=== PATIENT | female | born 1950 | race Caucasian/White ===

== ENCOUNTER 2017-07-16 22:23 | Emergency (ER) | payer MEDICARE ==
[~2017-07-16] VITALS: Ht 154.9 cm; Wt 65.2 kg
[~2017-07-16 22:23] MED LIST: K-TAB20 MEQ PO; PRILOSEC20 MG PO; SIMVASTATIN20 MG PO
[2017-07-16] MEDS ORDERED: SERTRALINE50 MG PO (22:35)
[2017-07-16] MEDS ORDERED: VALIUM5 MG PO (22:35)
[2017-07-16] MEDS ORDERED: SM ALLERGY50 MCG/ACT IN (22:35)
[2017-07-16] MEDS ORDERED: RHEUMATREX2.5 M1 PO (22:36)
[2017-07-16] MEDS ORDERED: TIZANIDINE2 MG PO (22:36)
[2017-07-16] MEDS ORDERED: LANTUS100 UNIT/M SC (22:37)
[2017-07-16] MEDS ORDERED: PERCOCET 5/325M1 TAB PO (23:36)
[2017-07-16] MEDS ORDERED: CIPROFLOXACN500 MG PO (23:36)
[2017-07-16] MEDS ORDERED: BACTRIM DS1 TAB PO (23:36)
[2017-07-17] VITALS: BP 150/71
== END 2017-07-17 | disposition home or self-care (01) ==
LOC: ED 22:23
DX: S80.862A Insect bite (nonvenomous), left lower leg, initial encounter (principal); L08.9 Local infection of the skin and subcutaneous tissue, unspecified; W57.XXXA Bitten or stung by nonvenomous insect and other nonvenomous arthropods, initial encounter

== ENCOUNTER 2017-12-21 10:00 | Day surgery (SDC) | payer MEDICARE ==
[~2017-12-21] VITALS: Ht 149.9 cm; Wt 61.2 kg
[~2017-12-21 10:00] MED LIST changes: +ATORVASTATIN CA40 MG PO; +BACTRIM DS1 TAB PO; +CIPROFLOXACN500 MG PO; +FOLIC ACID1 MG PO; +LANTUS100 UNIT/M SC; +LOSARTAN POT25 MG PO; +PERCOCET 5/325M1 TAB PO; +RHEUMATREX2.5 M1 PO; +SERTRALINE50 MG PO; +SM ALLERGY50 MCG/ACT IN; +TIZANIDINE2 MG PO; +TRADJENTA5 MG PO; +VALIUM5 MG PO
[2017-12-21 13:59] VITALS: BP 125/50
== END 2017-12-21 13:40 | disposition home or self-care (01) ==
LOC: ENDO 10:00 → ORM 16:45 → ENDO 16:45
PROVIDERS: ATTEND Internal Medicine Gastroenterology
PROC: 0DB98ZX Excision of Duodenum, Via Natural or Artificial Opening Endoscopic, Diagnostic (ICD-10-PCS; principal; 2017-12-21)
PROC: 0DB48ZX Excision of Esophagogastric Junction, Via Natural or Artificial Opening Endoscopic, Diagnostic (ICD-10-PCS; 2017-12-21)
PROC: 0D758ZZ Dilation of Esophagus, Via Natural or Artificial Opening Endoscopic (ICD-10-PCS; 2017-12-21)
DX: R11.2 Nausea with vomiting, unspecified (principal); R63.4 Abnormal weight loss; R10.11 Right upper quadrant pain; K22.2 Esophageal obstruction; K44.9 Diaphragmatic hernia without obstruction or gangrene; K29.70 Gastritis, unspecified, without bleeding; K21.9 Gastro-esophageal reflux disease without esophagitis; R63.0 Anorexia; R19.7 Diarrhea, unspecified; K62.5 Hemorrhage of anus and rectum; R14.0 Abdominal distension (gaseous); I10 Essential (primary) hypertension; E11.9 Type 2 diabetes mellitus without complications; J45.909 Unspecified asthma, uncomplicated; Z79.899 Other long term (current) drug therapy

== ENCOUNTER 2018-08-15 08:00 | Outpatient (RCR) | payer MEDICARE | END 2018-08-15 09:00 | disposition home or self-care (01) | LOC: PT 08:00 | PROVIDERS: ATTEND Internal Medicine | DX: M54.32 Sciatica, left side (principal); M06.9 Rheumatoid arthritis, unspecified; R53.1 Weakness ==

== ENCOUNTER 2020-01-01 20:04 | Emergency (ER) | payer MEDICARE ==
[~2020-01-01] VITALS: Ht 149.9 cm; Wt 64.0 kg
[2020-01-01 21:09] LABS: HEMATOCRIT 35.5 % (37.0-47.0); IMMATURE GRANULOCYTES 2.1 % (0.0-5.0); MEAN CELL VOLUME 94.9 fL CALC (80.0-100.0); MEAN CORPUSCULAR HGB 31.6 pG CALC (26.0-32.0); MEAN CORPUSCULAR HGB CONC 33.2 g/dL CAL (32.0-36.0); NEUT# 6.5 thou/uL (2.00-7.15); RED BLOOD COUNT 3.74 mill/uL (4.20-5.60); RED CELL DISTRI WIDTH 16.2 % (11.5-15.5)
[2020-01-01 21:11] LABS: HEMOGLOBIN 11.8 g/dl (12.0-16.0)
[2020-01-01 21:26] LABS: ALBUMIN 3.9 g/dL (3.2-5.0); ALKALINE PHOSPHATASE 78 u/l (38-126); ANION GAP 10 (6-22 (CALC)); BUN 7 mg/dL (8-23); BUN/CREATININE RATIO 13 (12-20 (CALC)); CARBON DIOXIDE 25 mmol/l (22-30); CHLORIDE 106 mmol/l (95-108); CREATININE 0.6 mg/dL (0.5-1.0); ETHYL ALCOHOL 159 mg/dl (0-30); GFR > 60 ML/MIN (>=60 (CALC)); GFR FOR AFR.AMER. > 60 ML/MIN (>=60 (CALC)); INTERNATIONAL NORMALIZED RATIO 0.9 RATIO (0.7-1.3); POTASSIUM 3.5 mmol/l (3.5-5.1); PROTHROMBIN TIME 9.3 SECONDS (9.0-12.5); SGOT/AST 21 u/l (9-36); SODIUM 137 mmol/l (137-146); TOTAL PROTEIN 6.4 g/dL (6.3-8.2)
[2020-01-01 21:29] LABS: BILIRUBIN, TOTAL 0.2 mg/dL (0.0-1.4)
[2020-01-01 22:00] VITALS: BP 122/60
== END 2020-01-01 22:05 | disposition home or self-care (01) ==
LOC: ED 20:04
PROVIDERS: Family Medicine
DX: S00.83XA Contusion of other part of head, initial encounter (principal); F10.129 Alcohol abuse with intoxication, unspecified; E11.9 Type 2 diabetes mellitus without complications; F17.200 Nicotine dependence, unspecified, uncomplicated; W18.30XA Fall on same level, unspecified, initial encounter; Y92.009 Unspecified place in unspecified non-institutional (private) residence as the place of occurrence of the external cause

== ENCOUNTER 2024-06-06 20:52 | Emergency (ER) | payer MEDICARE ==
[2024-06-06] VITALS (7 sets, daily range): BP systolic 97–114; BP diastolic 49–67
[~2024-06-06] VITALS: Ht 149.9 cm; Wt 80.0 kg
[~2024-06-06 20:52] MED LIST changes: +HYDROCO/APAP1 T10 PO
[2024-06-06] MEDS ORDERED: ONDANSETRON 4 MG/TAB ODT SL ONE (21:45)
[2024-06-06] MEDS ORDERED: MORPHINE SULFATE 4 MG/ML VIAL IV ONE (21:45)
[2024-06-06] MEDS ORDERED: DEXAMETHASONE SOD. PHOSPHATE 10 MG/ML VIAL IM ONE (23:55)
[2024-06-06] MEDS ORDERED: MORPHINE SULFATE 4 MG/ML VIAL IM ONE (23:55)
[2024-06-07] MEDS ORDERED: CELEBREX100 M1 PO (00:06)
[2024-06-07 00:23] VITALS: BP 114/61
== END 2024-06-07 00:35 | disposition home or self-care (01) ==
LOC: ED 20:52
DX: S80.12XA Contusion of left lower leg, initial encounter (principal); S80.11XA Contusion of right lower leg, initial encounter; M54.50 Low back pain, unspecified; E11.9 Type 2 diabetes mellitus without complications; F17.200 Nicotine dependence, unspecified, uncomplicated; W10.9XXA Fall (on) (from) unspecified stairs and steps, initial encounter; Y92.009 Unspecified place in unspecified non-institutional (private) residence as the place of occurrence of the external cause
CPT/HCPCS: J1100